=== PATIENT | female | born 1950 | race Caucasian/White ===

== ENCOUNTER → 2017-02-09 | Outpatient (CLI) | payer BC ==
--- NOTE | 2017-02-09 16:19 | MAMMOGRAPHY REPORT ---
BILATERAL DIGITAL SCREENING MAMMOGRAM WITH CAD: 02/09/2017 CLINICAL HISTORY: Routine screening examination. TECHNIQUE: Bilateral CC and MLO views were obtained. Current study was also evaluated with a Comput er Aided Detection (CAD) system. COMPARISON: Comparison is made to exams dated: 02/07/2016 mammogram, 07/15/2015 mammogram, 01/11/2015 mammogram, 01/02/2015 mammogram, 01/01/2014 mammogram, and 12/29/2012 mammogram - [facility] enter. BREAST COMPOSITION: There are scattered areas of fibroglandular density in both breasts. FINDINGS: The parenchymal pattern is similar to prior exams. There are scattered and grouped punct ate microcalcifications which are stable in each breast. No developing mass, architectural distorti on or cluster of suspicious microcalcifications is seen in either breast. IMPRESSION: ACR BI-RADS CATEGORY 2: BENIGN There is no mammographic evidence of malignancy. A 1 year screening mammogram is recommended. The p atient will receive written notification of the results. Approximately 10% of breast cancers are not detected with mammography. A negative mammographic repor t should not delay biopsy if a clinically suggestive mass is present. Brenda Bernal M.D. ay/:02/09/2017 14:22:13 Commercial Title Examiner: Rachel MOULTON(R)(M), [facility] letter sent: Normal 1/2 BI-RADS Code: ACR BI-RADS Category 2: Benign
== END ==
LOC: C.MAMM 09:54
PROVIDERS: ATTEND Internal Medicine
DX: Z12.31 Encounter for screening mammogram for malignant neoplasm of breast (principal)

== ENCOUNTER 2017-10-24 07:20 | Emergency (ER) | payer BC, OTHER ==
[~2017-10-24] VITALS: Ht 165.1 cm; Wt 88.5 kg
[2017-10-24 07:25] VITALS: TEMP 37.5; Ht 165.1 cm; Wt 88.5 kg
[2017-10-24] MEDS ORDERED: DEXAMETHASONE SOD INJ 4 MG/ML 5 ML VIAL IM STA (07:37)
[2017-10-24] MEDS ORDERED: ALBUT/IPRATROP 3MG/0.5MG NEB 3 ML VIAL INH STA (07:37)
[2017-10-24] MEDS ORDERED: BUPR150T5 PO (07:45)
[2017-10-24] MEDS ORDERED: ZLF/50 PO (07:45)
[2017-10-24] MEDS ORDERED: TPRSR/25 PO (07:45)
[2017-10-24] MEDS ORDERED: ASPI81TA28 PO (07:45)
[2017-10-24] MEDS ORDERED: ESOM1CAP34 PO (07:45)
[2017-10-24] MEDS ORDERED: ADVIN25/60 INH (07:45)
[2017-10-24] MEDS ORDERED: ROSU40TA28 PO (07:45)
--- NOTE | 2017-10-24 07:54 | DIAGNOSTIC IMAGING REPORT ---
CHEST 2 VIEWS ROUTINE CLINICAL HISTORY: Cough. Asthma exacerbation. COMPARISON STUDY: No previous studies for comparison. FINDINGS: Lung volumes are normal. No pneumothorax or pleural effusion is noted. There is no evidence for pulmonary edema. Cardiac size is normal. Mediastinal contours are normal. No consolidation is identified. There may be subtle lower lung reticulonodular interstitial thickening. This likely reflects normal vessels. IMPRESSION: 1. No consolidation identified. 2. Apparent subtle lower lung reticulonodular interstitial thickening. This likely reflects normal vessels however a mild infectious process could appear similar. Electronically signed by: Don Pierre M.D. 10/24/2017 7:53 AM Dictated Date/Time: 10/24/2017 7:51 AM
[2017-10-24] MEDS ORDERED: DEXAMETHASONE SOD INJ 4 MG/ML VIAL IM SCH (08:15)
[2017-10-24] MEDS ORDERED: PRED50TA PO (08:33)
[2017-10-24] MEDS ORDERED: AZITTAB PO (08:36)
[2017-10-24 08:46] VITALS: BP 144/80; PULSE 96; O2SAT 93
--- NOTE | 2017-10-24 10:11 | EMERGENCY ROOM VISIT NOTE ---
History First contact with patient: 07:29 Chief Complaint: CONGESTION Stated Complaint: ASTHMA/CONGESTION Nursing Triage Summary: Patient reports that last night she started having congestion and SOB. Hx asthma, Inhaler not due yet. Pt reports hx of bronchitis with asthma last year that was really bad and was told to be treated right away if it every happened again. History of Present Illness The patient is a 67 year old female who presents to the Emergency Room with complaints of wheezing and cough. The patient reports that her symptoms started yesterday afternoon. The patient reports that she went for a walk shortly before her symptoms started. The patient now reports wheezing and cough. The patient has a history of asthma. She has been administering albuterol inhalers every 4 hours with minimal to moderate relief of symptoms. The patient denies any other preceding fevers or chills, runny nose, congestion or sore throat. She denies any chest tightness or chest pain. Review of Systems 10 system review was performed and was negative except for pertinent positives and negatives as indicated in history of present illness Past Medical/Surgical History Medical Problems: (1) Asthma Surgical Problems: (1) No history of previous surgery Family History Unremarkable Social History Smoking Status: Former Smoker Alcohol Use: none Marital Status: Housing Status: lives with family Occupation Status: retired Current/Historical Medications Scheduled Aspirin (Aspirin Ec), 81 MG PO DAILY Azithromycin (Zithromax Z-Erick), 0 PO UD Bupropion Hcl (Bupropion Hcl Xl), 150 MG PO DAILY Esomeprazole Magnesium (Esomeprazole Magnesium), 40 MG PO DAILY Fluticasone Prop/Salmeterol (Advair Diskus 250/50 60 Dose), 1 PUFF INH BID Metoprolol Succinate (Metoprolol Succinate ER), 25 MG PO DAILY Prednisone (Prednisone), 50 MG PO DAILY Rosuvastatin Calcium (Rosuvastatin Calcium), 40 MG PO DAILY Sertraline HCl (Sertraline HCl), 50 MG PO DAILY Physical Exam Vital Signs Date Time Temp Pulse Resp B/P (MAP) Pulse Ox O2 Delivery O2 Flow Rate FiO2 10/24/17 08:46 96 20 144/80 93 10/24/17 07:29 92 Room Air 10/24/17 07:25 37.5 93 18 148/80 93 Room Air Physical Exam CONSTITUTIONAL: Healthy and well nourished. Alert and oriented X 3 with positive affect. HEENT: Normocephalic, atraumatic. Pupils equal, round and reactive. Ears and nares are clear without rhinorrhea or TM bulging. OROPHARYNX: No posterior pharyngeal erythema or tonsillar hypertrophy/exudates. NECK: Full active range of motion without discomfort. LYMPHATICS: No cervical chain adenopathy. RESPIRATORY: Auscultation shows inspiratory and expiratory wheezing without crackles, rhonchi or stridor. CARDIOVASCULAR: Regular rate and rhythm with no murmurs, rubs or gallops. GASTROINTESTINAL: Bowel sounds present in all quadrants. MUSCULOSKELETAL: Full range of motion of all joints without discomfort. INTEGUMENTARY: No rash or other significant dermatologic conditions noted. NEUROLOGIC: No focal neurologic deficits noted. Medical Decision & Procedures ER Provider Diagnostic Interpretation: My interpretation of a two-view chest x-ray does not show any consolidations or pneumothorax. Radiologist does suggest some mild thickening of the interstitium of the left lung base. Radiologist report is as follows: CHEST 2 VIEWS ROUTINE CLINICAL HISTORY: Cough. Asthma exacerbation. COMPARISON STUDY: No previous studies for comparison. FINDINGS: Lung volumes are normal. No pneumothorax or pleural effusion is noted. There is no evidence for pulmonary edema. Cardiac size is normal. Mediastinal contours are normal. No consolidation is identified. There may be subtle lower lung reticulonodular interstitial thickening. This likely reflects normal vessels. IMPRESSION: 1. No consolidation identified. 2. Apparent subtle lower lung reticulonodular interstitial thickening. This likely reflects normal vessels however a mild infectious process could appear similar. Medications Administered Medications (Trade) Dose Ordered Sig/Henri Route Start Time Stop Time Status Last Admin Dose Admin Albuterol/ Ipratropium (Duoneb) 3 ml NOW STAT INH 10/24/17 07:37 10/24/17 07:39 DC 10/24/17 08:03 3 ML Dexamethasone Sodium Phosphate (Decadron Inj) 10 mg 0815 IM 10/24/17 08:15 10/24/17 09:00 DC 10/24/17 08:07 10 MG ED Course Patient history and physical exam were performed. Nurse's notes were reviewed. Vital signs were reviewed. Triage nurse told me that oral temperature was taken shortly after the patient drank coffee. Oral temperature was 37.5C. The patient is not tachycardic or hypertensive. O2 saturation is 93% on room air. A two-view chest x-ray was normal. The patient was administered a unit dose DuoNeb treatment with notable improvement of the patient's cough, and complete resolution of both expiratory and expiratory wheezing. The patient denied any symptoms at the time of discharge. Although I explained to the patient that this is likely an asthma exacerbation, I did discuss her chest x-ray findings and suggested that this could also be a viral upper respiratory infection. If the patient's symptoms worsen, she was provided a prescription for Zithromax. She was provided a prescription for prednisone 50 mg daily for the next 4 days. The patient was encouraged to use her home albuterol inhaler, 2 puffs every 4 hours for the next few days. She was encouraged to follow-up with her PCP or retail operations manager if symptoms are persistent, and return to the emergency department for any progressively worsening symptoms, developing fever, shortness of breath, chest pain or other concerns. The patient was happy with plan of care, and voiced understanding of all discharge instructions. Case was also discussed with Dr. Perez, ED attending physician, who agrees with workup and plan of care. Medical Decision Medication Reconcilliation Current Medication List: was personally reviewed by tn Blood Pressure Screening Patient's blood pressure: Normal blood pressure Impression Primary Impression: Asthma exacerbation Departure Information Prescriptions Azithromycin (ZITHROMAX Z-ERICK) 250 Mg Tab 0 PO UD, #1 PKT 2 TABS DAY 1, THEN 1 TAB DAILY FOR 4 DAYS Prov: Odilon Vides PA 10/24/17 Prednisone (Prednisone) 50 Mg Tab 50 MG PO DAILY for 4 Days, #4 TAB Prov: Odilon Vides PA 10/24/17 Referrals No Doctor, Assigned (PCP) Patient Instructions My [facility] Problem Qualifiers Primary Impression: Asthma exacerbation Asthma severity: mild Asthma persistence: unspecified Qualified Codes: J45.901 - Unspecified asthma with (acute) exacerbation
== END 2017-10-24 08:46 | disposition home or self-care (01) ==
LOC: C.EDB 07:22
DX: J45.901 Unspecified asthma with (acute) exacerbation (principal); Z79.82 Long term (current) use of aspirin; Z79.51 Long term (current) use of inhaled steroids; Z87.891 Personal history of nicotine dependence

== ENCOUNTER 2017-10-30 00:03 | Emergency (ER) | payer OTHER ==
[~2017-10-30] VITALS: Ht 163.8 cm; Wt 84.8 kg
[~2017-10-30 00:03] MED LIST: ADVIN25/60 INH; ASPI81TA28 PO; AZITTAB PO; BUPR150T5 PO; ESOM1CAP34 PO; ROSU40TA28 PO; TPRSR/25 PO; ZLF/50 PO
[2017-10-30 00:06] VITALS: Ht 163.8 cm; Wt 84.8 kg
[2017-10-30] MEDS ORDERED: ALBUT/IPRATROP 3MG/0.5MG NEB 3 ML VIAL INH STA (00:27)
[2017-10-30] MEDS ORDERED: ACETAMINOPHEN 325 MG TAB PO STA (00:27)
[2017-10-30] MEDS ORDERED: DEXAMETHASONE **PF** INJ 10 MG/ML VIAL PO STA (00:27)
[2017-10-30] MEDS ORDERED: AZIT250T PO (01:01)
--- NOTE | 2017-10-30 01:47 | EMERGENCY ROOM VISIT NOTE ---
History Report prepared by Evangelist: Celestina López Under the Supervision of: Dr. Jerry Morocho M.D. First contact with patient: 00:13 Chief Complaint: RESPIRATORY PROBLEMS Stated Complaint: ASTHMA History of Present Illness The patient is a 67 year old white female with a past medical history of asthma , high cholesterol, GERD who presents to the ED with a cc of persistent SOB beginning 2 days ago. Positive productive cough. Negative fever, chest pain, nausea, vomiting. Her symptoms feel like her typical asthma. She was seen in the ED last week and given a Z erick and steroids. Her symptoms seemed to worsen again when she finished her steroids 2 days ago. She denies any history of blood clots. She is on baby aspirin. She is a nonsmoker. Source of History: patient Onset: 2 days ago Position: other (global) Quality: other (SOB) Timing: other (persistent) Associated Symptoms: + cough, No fevers, No chest pain, No nausea, No vomiting Review of Systems See HPI for pertinent positives and negatives. A total of ten systems were reviewed and were otherwise negative. Past Medical & Surgical Medical Problems: (1) Asthma Surgical Problems: (1) No history of previous surgery Family History No pertinent family history stated. Social History Smoking Status: Never Smoker Alcohol Use: none Marital Status: Housing Status: lives with family Occupation Status: retired Current/Historical Medications Scheduled Aspirin (Aspirin Ec), 81 MG PO DAILY Azithromycin (Zithromax), 1 PKT PO UD Bupropion Hcl (Bupropion Hcl Xl), 150 MG PO DAILY Esomeprazole Magnesium (Esomeprazole Magnesium), 40 MG PO DAILY Fluticasone Prop/Salmeterol (Advair Diskus 250/50 60 Dose), 1 PUFF INH BID Metoprolol Succinate (Metoprolol Succinate ER), 25 MG PO DAILY Prednisone (Prednisone), 20 MG PO DAILY Rosuvastatin Calcium (Rosuvastatin Calcium), 40 MG PO DAILY Sertraline HCl (Sertraline HCl), 50 MG PO DAILY Allergies Coded Allergies: Losartan (Verified Allergy, Severe, SHORTNESS OF BREATH, 10/30/17) tongue swelling Lisinopril (Verified Allergy, Mild, SHORTNESS OF BREATH, 10/30/17) COUGH Physical Exam Vital Signs Date Time Temp Pulse Resp B/P (MAP) Pulse Ox O2 Delivery O2 Flow Rate FiO2 10/30/17 02:28 36.6 79 18 131/72 93 10/30/17 01:43 98 18 129/72 Room Air 10/30/17 01:00 85 10/30/17 00:18 95 Room Air 10/30/17 00:06 36.8 81 24 157/84 95 Room Air Physical Exam GENERAL: Awake, alert, well-appearing, NAD HENT: Normocephalic, atraumatic. EYES: Normal conjunctiva. Sclera non-icteric. NECK: Supple. No nuchal rigidity. FROM. RESPIRATORY: Trace expiratory wheezing. No respiratory distress. No rhonchi, crackles CARDIAC: RRR, no MRG ABDOMEN: Soft, NTND, BS+ MSK: No chest wall TTP, no LE edema NEURO: GCS 15, CN 2-12 intact, moves all 4s on command SKIN: No rash or jaundice noted. Medical Decision & Procedures ER Provider Diagnostic Interpretation: X-ray: Per my interpretation, radiologist review. Chest X-ray: Trachea midline. Costophrenic angles are well demarcated. No free air under the diaphragm. No evidence of pneumothorax or pleural effusion. Heart is not enlarged. No obvious consolidation. Laboratory Results Test 10/30/17 01:05 Influenza Type A Antigen Neg for Influ A (NEG) Influenza Type B Antigen Neg for Influ B (NEG) Laboratory results reviewed by me Medications Administered Medications (Trade) Dose Ordered Sig/Henri Route Start Time Stop Time Status Last Admin Dose Admin Albuterol/ Ipratropium (Duoneb) 9 ml ONE STAT INH 10/30/17 00:27 10/30/17 00:30 DC 10/30/17 00:42 9 ML Acetaminophen (Tylenol Tab) 650 mg NOW STAT PO 10/30/17 00:27 10/30/17 00:30 DC 10/30/17 00:42 650 MG Dexamethasone Sodium Phosphate (Dexamethasone Inj Pf) 10 mg ONE STAT PO 10/30/17 00:27 10/30/17 00:30 DC 10/30/17 00:42 10 MG ECG Indication: SOB/dyspnea Rate (beats per minute): 71 Rhythm: normal sinus Findings: T-wave inversion (Lateral), other (wide QRS with LBBB pattern, no Sgarbossa criteria) Comparison ECG Date: no prior available Change: Patient's electrocardiogram interpreted by me. ED Course 0020: The patient was evaluated in room B9. A complete history and physical exam was performed. 0129: I reevaluated the patient. Discussed results and discharge instructions: She verbalized understanding and agreement. The patient is ready for discharge. Medical Decision The patient is a 67 year old white female with a past medical history of asthma , high cholesterol, GERD who presents to the ED with a cc of persistent SOB beginning 2 days ago. Differential diagnosis: Etiologies such as infections, reactive airway disease, pneumonia, pneumothorax , COPD, CHF, cardiac ischemia, pulmonary embolism, musculoskeletal, gastrointestinal, as well as others were entertained. Patient was seen and evaluated the bedside. Patient does have a prior history of asthma and states this feels similar to prior instances. Patient was recently seen and evaluated in the emergency department course she received a Z- Erick and some prednisone. Patient states that her symptoms got worse the day after that she completed her steroids. On exam the patient is not hypoxic and only has trace wheezing. However, given the patient's complaints of some shortness of breath she was treated with DuoNeb's as well as some by mouth dexamethasone. Patient did have a screening EKG that was obtained. Patient's EKG did show that she had a left bundle branch block without any scar bursa criteria. Given that the patient was not complaining of any chest pains and that this felt similar to her prior asthma exacerbations this was not further worked up at this time. Patient was told that she should follow-up with her PCP for further evaluation of her EKG. Patient is a nonsmoker. Upon reevaluation of the patient the patient felt much improved. This furthermore likely means of the patient truly did have an asthma attack as opposed to supplement ACS, or a blood clot. A chest x-ray was obtained and there was no obvious focal consolidation. Less likely pneumonia. Patient was told that she should talk to her allergy an dial maker. Patient was given a spacer and teaching was given by nursing staff. Patient was also told she may benefit from a nebulizer machine. Patient was deemed suitable for outpatient follow-up and treatment at this time. Patient was given a more prolonged course of steroids but with a taper. Patient was given strict follow-up, discharge, and return precautions. All questions were answered. Patient was deemed suitable for outpatient follow-up at this time. Patient agreed with the plan of care and was safely discharged home. The chart was completed utilizing Dragon Speech voice recognition software. Grammatical errors, random word insertions, pronoun errors, and incomplete sentences are an occasional consequence of this system due to software limitations, ambient noise, and hardware issues. Any formal questions or concerns about the content, text, or information contained within the body of this dictation should be directly addressed to the physician for clarification. Medication Reconcilliation Current Medication List: was personally reviewed by me Blood Pressure Screening Patient's blood pressure: Normal blood pressure Blood pressure disposition: Did not require urgent referral Impression Primary Impression: Asthma exacerbation Scribe Attestation The scribe's documentation has been prepared under my direction and personally reviewed by me in its entirety. I confirm that the note above accurately reflects all work, treatment, procedures, and medical decision making performed by me. Departure Information Dispostion Home / Self-Care Prescriptions Prednisone (Prednisone) 20 Mg Tab 20 MG PO DAILY for 9 Days, #10.5 TAB Take 2 tabs x 3 days, 1 tab x 3 days, 1/2 tab x 3 days Prov: Jerry Morocho M.D. 10/30/17 Referrals Crissy Rodrigez M.D. (PCP) Patient Instructions Asthma - [facility], Asthma Exercise, [facility] Additional Instructions Please return to the emergency department if you have worsening or recurrent symptoms not amenable to at-home treatment. Please call for a follow-up appointment with her primary care physician. Please take your medications as prescribed. If you have other concerns and/or complaints please feel free to also call your primary care physician's office or return the ED for further evaluation, management, and treatment. Please consider using your spacer or obtaining a nebulizer. Please follow-up with your allergy dial maker as we discussed. Please take your steroids preferably in the morning and with food. Please do not take until October 31 has your current dose last 48 hours. Take your medications as prescribed. You have been examined and treated today on an emergency basis only. This is not a substitute for, or an effort to provide, complete comprehensive medical care. It is impossible to recognize and treat all injuries or illnesses in a single emergency department visit. It is therefore important that you follow up closely with [facility], your PCP, and/or your specialist(s). Call as soon as possible for an appointment. Thank you for your time and consideration. I look forward to speaking with you again soon. Please don't hesitate to call us if you have any questions. Problem Qualifiers Primary Impression: Asthma exacerbation Asthma severity: mild Asthma persistence: persistent Qualified Codes: J45.31 - Mild persistent asthma with (acute) exacerbation
[2017-10-30] MEDS ORDERED: PRED20TA PO (01:52)
[2017-10-30 01:56] LABS: INFLUENZA B ANTIGEN Neg for Influ B (NEG)
[2017-10-30 02:28] VITALS: BP 131/72; PULSE 79; TEMP 36.6; O2SAT 93
--- NOTE | 2017-10-30 08:42 | DIAGNOSTIC IMAGING REPORT ---
CHEST 2 VIEWS ROUTINE CLINICAL HISTORY: Cough. Asthma. COMPARISON STUDY: Chest radiograph October 24, 2017. FINDINGS: Lung volumes are normal. No pneumothorax or pleural effusion is noted. There is no consolidation to suggest pneumonia. Cardiac size is normal. Mediastinal contours are normal. IMPRESSION: No acute cardiopulmonary findings. Electronically signed by: Don Pierre M.D. 10/30/2017 8:41 AM Dictated Date/Time: 10/30/2017 8:38 AM
== END 2017-10-30 02:28 | disposition home or self-care (01) ==
LOC: C.EDB 00:04
DX: J45.31 Mild persistent asthma with (acute) exacerbation (principal); I44.7 Left bundle-branch block, unspecified; Z79.82 Long term (current) use of aspirin; Z88.8 Allergy status to other drugs, medicaments and biological substances

== ENCOUNTER → 2018-02-17 | Outpatient (CLI) | payer OTHER ==
[~2018-02-17] MED LIST changes: +AZIT250T PO; -AZITTAB PO
--- NOTE | 2018-02-17 14:14 | MAMMOGRAPHY REPORT ---
BILATERAL DIGITAL SCREENING MAMMOGRAM TOMOSYNTHESIS WITH CAD: 02/17/2018 CLINICAL HISTORY: Routine screening. Patient has no complaints. TECHNIQUE: Breast tomosynthesis in addition to standard 2D mammography was performed. Current study was also evaluated with a Computer Aided Detection (CAD) system. COMPARISON: Comparison is made to exams dated: 02/09/2017 mammogram, 02/07/2016 mammogram, 07/15/2015 mammogram, 01/11/2015 mammogram, 01/02/2015 mammogram, and 01/01/2014 mammogram - [facility]. BREAST COMPOSITION: There are scattered areas of fibroglandular density in both breasts. FINDINGS: No suspicious masses, calcifications, or areas of architectural distortion are noted in ei ther breast. There has been no significant interval change compared to prior exams. IMPRESSION: ACR BI-RADS CATEGORY 1: NEGATIVE There is no mammographic evidence of malignancy. A 1 year screening mammogram is recommended. The pa tient will receive written notification of the results. Approximately 10% of breast cancers are not detected with mammography. A negative mammographic report should not delay biopsy if a clinically suggestive mass is present. Maru Matias M.D. /:02/17/2018 12:31:34 Business Services Manager: Enid MOULTON(Sridhar)(Itz), [facility] letter sent: Normal 1/2 BI-RADS Code: ACR BI-RADS Category 1: Negative
== END | disposition home or self-care (01) ==
LOC: C.MAMM 10:53
PROVIDERS: ATTEND Internal Medicine
DX: Z12.31 Encounter for screening mammogram for malignant neoplasm of breast (principal)